=== PATIENT | female | born 1950 | race Caucasian/White ===

== ENCOUNTER → 2017-03-19 | Outpatient (CLI) | payer BC ==
[2005-01-02 06:59] VITALS: TEMP 96.9
== END ==
LOC: MC.RAD 09:38
DX: Z12.31 Encounter for screening mammogram for malignant neoplasm of breast (principal)

== ENCOUNTER 2018-03-06 06:44 | Day surgery (SDC) | payer BC ==
[~2018-03-06] VITALS: Ht 166.4 cm; Wt 54.4 kg
[2018-03-06 08:50] VITALS: BP 121/70; PULSE 71; TEMP 97.8
[2018-03-06] MEDS ORDERED: NORCO 325 MG-51 TAB PO (14:57)
[2018-03-06 15:22] VITALS: TEMP 98
[2018-03-06 15:35] VITALS: BP 124/74; PULSE 70
--- NOTE | 2018-03-06 15:35 | NUR ---
Patient returns to room 7 per cart and is awake and alert. Temp 97.8 and room air sats 96%. Dressing x2 on upper right thigh and right groin clean and dry. IV fluids infusing. Denies pain or nausea. Spouse in room.
[2018-03-06 15:50] VITALS: BP 120/69; PULSE 77
--- NOTE | 2018-03-06 15:50 | NUR ---
Drinking water and eating crackers. Spouse given [place] script to be filled prior to dismissal.
[2018-03-06 16:05] VITALS: BP 137/60; PULSE 74
--- NOTE | 2018-03-06 16:05 | NUR ---
Continues to eat crackers and drink water.
[2018-03-06 16:20] VITALS: BP 116/68; PULSE 65
--- NOTE | 2018-03-06 16:20 | NUR ---
Tolerated crackers and water.
--- NOTE | 2018-03-06 16:25 | NUR ---
Assisted up to the bathroom and is able to void. Becomes nauseated when returning to home. Laying on cart.
--- NOTE | 2018-03-06 16:35 | NUR ---
Zofran 4mg IV given and allowed to rest.
--- NOTE | 2018-03-06 16:52 | NUR ---
Dr. Hickman here to talk with the patient. No further nausea.
--- NOTE | 2018-03-06 17:00 | NUR ---
Had emesis of 30cc's bile colored returns. States that she feels better after having emesis. Sipping on Sprite. States that she is wanting to go home and sleep. Dressing on the right thigh and groin dry x2.
--- NOTE | 2018-03-06 17:10 | NUR ---
Given dismissal instructions and voices understanding of these. INT discontinued and site free of redness. Patient able to dress self. Spouse in room. No further emesis.
--- NOTE | 2018-03-06 17:13 | NUR ---
Patient dismissed to home per private vehicle driven by spouse with instructions in hand. Taken to the front door per wheelchair and assisted into car.
== END 2018-03-06 17:13 | disposition home or self-care (01) ==
LOC: SDCO 06:44
DX: C43.71 Malignant melanoma of right lower limb, including hip (principal); C77.4 Secondary and unspecified malignant neoplasm of inguinal and lower limb lymph nodes; D36.0 Benign neoplasm of lymph nodes; Z85.820 Personal history of malignant melanoma of skin; Z79.899 Other long term (current) drug therapy; Z80.3 Family history of malignant neoplasm of breast; Z82.3 Family history of stroke; E03.9 Hypothyroidism, unspecified
CPT/HCPCS: A9541; J1170; J1885; J2405; J2704; J3010; J7120

== ENCOUNTER → 2018-06-03 | Outpatient (CLI) | payer BC ==
[~2018-06-03] MED LIST: NORCO 325 MG-51 TAB PO
== END ==
LOC: MC.RAD 04-15 11:00
DX: Z12.31 Encounter for screening mammogram for malignant neoplasm of breast (principal)

== ENCOUNTER → 2018-06-10 | Outpatient (CLI) | payer BC | LOC: ZCOL.LAB 14:38 | DX: R10.31 Right lower quadrant pain (principal) ==

== ENCOUNTER 2018-08-05 10:00 | Outpatient (RCR) | payer BC | END 2018-08-11 | LOC: MKS.ESL.PT | DX: C43.71 Malignant melanoma of right lower limb, including hip (principal); C77.4 Secondary and unspecified malignant neoplasm of inguinal and lower limb lymph nodes; I97.89 Other postprocedural complications and disorders of the circulatory system, not elsewhere classified; I89.0 Lymphedema, not elsewhere classified; Z98.890 Other specified postprocedural states ==

== ENCOUNTER 2018-12-23 08:00 | Outpatient (RCR) | payer BC | END 2019-01-26 | disposition still patient (30) | LOC: MKS.ESL.PT | DX: C77.4 Secondary and unspecified malignant neoplasm of inguinal and lower limb lymph nodes (principal); C43.71 Malignant melanoma of right lower limb, including hip ==

== ENCOUNTER 2019-03-10 08:00 | Outpatient (RCR) | payer BC | END 2019-03-10 16:48 | disposition home or self-care (01) | LOC: MKS.ESL.PT 08:00 | DX: C43.71 Malignant melanoma of right lower limb, including hip (principal); C77.4 Secondary and unspecified malignant neoplasm of inguinal and lower limb lymph nodes; Z98.890 Other specified postprocedural states ==

== ENCOUNTER → 2019-08-04 | Outpatient (CLI) | payer BC | LOC: MC.RAD 12:22 | DX: Z12.31 Encounter for screening mammogram for malignant neoplasm of breast (principal) ==

== ENCOUNTER → 2020-09-27 | Outpatient (CLI) | payer BC | LOC: MC.RAD 12:48 | DX: Z12.31 Encounter for screening mammogram for malignant neoplasm of breast (principal) ==

== ENCOUNTER → 2021-10-17 | Outpatient (CLI) | payer BC | LOC: MC.RAD 12:51 | DX: Z12.31 Encounter for screening mammogram for malignant neoplasm of breast (principal) ==

== ENCOUNTER → 2023-02-28 | Outpatient (CLI) | payer BC | LOC: COL.RAD 08:53 | DX: Z85.820 Personal history of malignant melanoma of skin (principal) | CPT/HCPCS: Q9967 ==

== ENCOUNTER 2023-06-05 09:48 | Outpatient (CLI) | payer MEDICARE, BC ==
[~2023-06-05] VITALS: Ht 167.6 cm; Wt 54.6 kg
[2023-06-05] MEDS ORDERED: Denosumab 60 MG/ML SYRINGE SQ ONE (10:15)
[2023-06-05] MEDS ORDERED: SYNTHROID0.05 MG/TA PO (11:41)
[2023-06-05] MEDS ORDERED: MOBIC15 MG PO (11:41)
[2023-06-05 11:44] VITALS: BP 130/75; PULSE 69; TEMP 98.6
== END 2023-06-05 11:45 ==
LOC: EUO 09:48
DX: M81.0 Age-related osteoporosis without current pathological fracture (principal)
CPT/HCPCS: J0897

== ENCOUNTER → 2023-10-23 | Outpatient (CLI) | payer MEDICARE, BC ==
[~2023-10-23] MED LIST changes: +MOBIC15 MG PO; +SYNTHROID0.05 MG/TA PO
== END ==
LOC: MC.RAD 09:51
DX: Z12.31 Encounter for screening mammogram for malignant neoplasm of breast (principal)

== ENCOUNTER 2023-12-09 10:49 | Outpatient (CLI) | payer MEDICARE, BC ==
[~2023-12-09] VITALS: Ht 167.6 cm; Wt 54.6 kg
[2023-12-09 11:04] VITALS: BP 130/75; PULSE 74; TEMP 98.8
[2023-12-09] MEDS ORDERED: Denosumab 60 MG/ML SYRINGE SQ ONE (11:15)
--- NOTE | 2023-12-09 11:30 | NUR ---
PT TOLERATED INJECTION WELL. VS REMAINED WITHIN NORMAL LIMITS. PT AMBULATED TO [facility] UPON DISCHARGE INDEPENDENTLY. PT REMAINED FREE FROM ACUTE CONCERNS AND COMPLAINTS.
== END 2023-12-09 11:32 | disposition home or self-care (01) ==
LOC: EUO 10:49
DX: M81.0 Age-related osteoporosis without current pathological fracture (principal)
CPT/HCPCS: J0897